=== PATIENT | female | born 1985 | race Hispanic/Latino ===

== ENCOUNTER 2018-03-28 11:54 | Emergency (ER) | payer SELFPAY ==
[2018-03-28] MEDS ORDERED: ATIVAN IM ONE ×2 (12:10→12:12)
[2018-03-28] MEDS ORDERED: HALDOL IM ONE ×2 (12:10→12:11)
--- NOTE | 2018-03-28 12:12 | Emergency Department Report ---
ED General Adult HPI - General Chief complaint: Overdose Stated complaint: UNRESPONSIVE Time Seen by Provider: 03/28/18 12:10 Source: patient, EMS (verbal report received from EMS.ems notes not available at time of chart dictation), RN notes reviewed Mode of arrival: Stretcher Limitations: Altered Mental Status, Other (patient is intoxicated) - History of Present Illness Initial comments: This is a 33-year-old female who is unknown to this provider previously, brought to the hospital by EMS. The patient was found unresponsive in the field , for uncertain duration of time, and uncertain mechanism. EMS did not check a fingerstick in the field. Upon arrival to the ER, the patient's fingerstick was in the mid 90s. EMS gave Narcan in the field with some improvement in mental status. In the ER, the patient came to, and admitted to consuming GHB recreationally. She denied other coingestants. She made no indication of homicidality or suicidality. The patient was very upset, and was very concerned that she was going to be arrested. In addition, drug paraphernalia, including methamphetamine rocks were noted to be in her external genitals. The patient required Haldol and Ativan for her diagnostic workup given her trauma. No family is available at this time for collateral information. No other information is available at this time. -: unknown Quality: other (the patient is altered and intoxicated, and cannot describe quality, consistency, exacerbating or relieving factors.) Consistency: other (per hpi) Improves with: other (per hpi) Worsens with: other (per hpi) Associated Symptoms: other (per hpi) Treatments Prior to Arrival: other (per hpi) - Related Data Previous Rx's Medication Instructions Recorded Last Taken Type Naloxone HCl [Narcan] 2 mg NS Q15MIN PRN #10 spray 03/28/18 Unknown Rx Allergies Allergy/AdvReac Type Severity Reaction Status Date / Time No Known Allergies Allergy Verified 03/28/18 12:04 ED Review of Systems ROS: Stated complaint: UNRESPONSIVE Other details as noted in HPI Comment: Unobtainable due to pts medical conditions ED Past Medical Hx - Past Medical History Additional medical history: unknown - Surgical History Additional Surgical History: unknown - Social History Smoking Status: Unknown if ever smoked - Medications Home Medications: Home Medications Medication Instructions Recorded Confirmed Last Taken Type Naloxone HCl [Narcan] 2 mg NS Q15MIN PRN #10 spray 03/28/18 Unknown Rx ED Physical Exam - General Limitations: Altered Mental Status General appearance: appears intoxicated, in distress - Head Head exam: Present: atraumatic, normocephalic - Eye Eye exam: Present: normal appearance, other (the pupils are pinpoint and has minima reaction to light after Haldol, Ativanl). Absent: nystagmus - ENT ENT exam: Present: normal exam, normal orophraynx, mucous membranes moist, TM's normal bilaterally, normal external ear exam, other (there is no hemotympanum. There is no nasal septal hematoma) - Neck Neck exam: Present: normal inspection, full ROM. Absent: tenderness, meningismus - Respiratory Respiratory exam: Present: normal lung sounds bilaterally. Absent: respiratory distress - Cardiovascular Cardiovascular Exam: Present: regular rate, normal rhythm, normal heart sounds. Absent: bradycardia, tachycardia, irregular rhythm, systolic murmur, diastolic murmur, rubs, gallop - GI/Abdominal GI/Abdominal exam: Present: soft, normal bowel sounds. Absent: distended, tenderness, guarding, rebound, rigid, pulsatile mass - Rectal Rectal exam: Present: normal inspection, other (escorted by nurse delisa elise ) - External exam: Present: normal external exam (escorted by nurse delisa elise) - Extremities Exam Extremities exam: Present: normal inspection, full ROM, normal capillary refill , other (2+ pulses noted in the bilateral upper, lower extremities. Compartments soft. The pelvis is stable. There is no long bony tenderness.). Absent: pedal edema, calf tenderness - Back Exam Back exam: Present: normal inspection, full ROM. Absent: paraspinal tenderness , vertebral tenderness - Neurological Exam Neurological exam: Present: altered (patient is alert to name, location. Does not know the date, year, month), CN II-XII intact, other (there is no facial droop. The tongue is midline. Extraocular movements are intact. Patient is phonating in full sentences. She moves 5 extremities spontaneously. Intoxicated, cannot assess slight sensation or light touch or pinprick.) - Psychiatric Psychiatric exam: Present: anxious - Skin Skin exam: Present: warm, dry, intact, normal color. Absent: rash ED Course Vital Signs 03/28/18 03/28/18 03/28/18 12:04 12:38 12:46 Temperature 96.5 F L Pulse Rate 61 Respiratory 14 Rate Blood Pressure 115/75 115/75 107/65 O2 Sat by Pulse 95 100 99 Oximetry 03/28/18 03/28/18 03/28/18 13:00 13:16 13:30 Temperature Pulse Rate 70 72 73 Respiratory 14 14 13 Rate Blood Pressure 118/80 118/80 O2 Sat by Pulse 100 100 100 Oximetry 03/28/18 03/28/18 03/28/18 13:46 14:00 14:16 Temperature Pulse Rate 77 74 69 Respiratory 13 12 13 Rate Blood Pressure 109/67 109/67 120/73 O2 Sat by Pulse 100 100 100 Oximetry 03/28/18 03/28/18 03/28/18 14:30 14:46 15:00 Temperature Pulse Rate 67 62 61 Respiratory 13 12 11 L Rate Blood Pressure 120/73 113/74 113/74 O2 Sat by Pulse 100 99 Oximetry 03/28/18 03/28/18 03/28/18 15:16 15:30 15:46 Temperature Pulse Rate 91 H 71 91 H Respiratory 15 12 12 Rate Blood Pressure 128/73 128/73 127/73 O2 Sat by Pulse 100 98 100 Oximetry 03/28/18 03/28/18 03/28/18 16:00 16:16 16:30 Temperature Pulse Rate 68 64 94 H Respiratory 12 13 16 Rate Blood Pressure 127/73 127/73 127/70 O2 Sat by Pulse 100 100 100 Oximetry 03/28/18 03/28/18 16:46 17:00 Temperature Pulse Rate 72 71 Respiratory 17 13 Rate Blood Pressure 116/74 116/74 O2 Sat by Pulse 99 99 Oximetry - Reevaluation(s) Reevaluation #1: 03/28/18 15:51 The patient is reassessed and she is much more awake, alert, and conversant. She is clinically sober at this time, has a [place] Coma Scale of 15. She is not homicidal or suicidal. I counseled the patient to avoid consumption of recreational drugs. She is able to tell me the year, month, date, and also giving her mother's first and last name. We are going to call the patient's mother to come by and pick her up. Reevaluation #2: 03/28/18 17:13 Since family will not come to pickle processor the patient. She is still impaired, and will therefore be observed in the ER until clinical sobriety. Reevaluation #3: 03/28/18 19:51 Patient was further observed in the ER, able to walk without difficulty, clinically sober, and exhibited decision-making capacity at the time of discharge. She was also seen in consultation with the mental health team who give the patient outpatient resources for detox therapy. ED Medical Decision Making - Lab Data Result diagrams: 03/28/18 Unknown 03/28/18 Unknown - EKG Data -: EKG Interpreted by Me EKG shows normal: sinus rhythm, axis, intervals, QRS complexes, ST-T waves - EKG Data When compared to previous EKG there are: previous EKG unavailable - Radiology Data Radiology results: report reviewed, image reviewed Noncontrast CT scan of the brain is negative for acute disease noncontrast CT scan of the cervical spine is negative for acute disease. 1 view x-ray of the chest is negative for acute disease - Medical Decision Making Differential diagnosis, including but not limited to: Intracranial injury, cervical spine injury, concussion, polysubstance abuse, intoxication, myositis, anxiety, mood disorder Assessment and plan: 33-year-old female who presented initially with altered mental status, found down, called as a code trauma initially. During her primary survey, the patient became awake and alert, speaking in full sentences, was protecting her airway, moving 4 extremities. She did not require intubation. She was very anxious, clearly intoxicated, and did not exhibit decision-making capacity., Most likely secondary to her presumed illicit drug consumption. An emergency CT scan of the brain and cervical spine was negative for acute disease, and serum toxicology studies did not demonstrate evidence of any toxic metabolite. Patient required Haldol and Ativan given her agitation, and inability to cooperate and inability to follow instructions. However, she did not endorse suicidality or homicidality, and it was no indication of intention to self harm, the presentation is most likely the consequence of recreational drug consumption. The patient will be observed in the ER on a cardiac catheterization technician and pulse oximetry pending clinical sobriety. Critical care attestation.: If time is entered above; I have spent that time in minutes in the direct care of this critically ill patient, excluding procedure time. ED Disposition Clinical Impression: Overdose Qualifiers: Encounter type: initial encounter Injury intent: accidental or unintentional Qualified Code(s): T50.901A - Poisoning by unspecified drugs, medicaments and biological substances, accidental (unintentional), initial encounter Disposition: DC-01 TO HOME OR SELFCARE Is pt being admited?: No Does the pt Need Aspirin: No Condition: Stable Instructions: Polysubstance Abuse (ED) Additional Instructions: Please avoid consumption of recreational drugs in the future. These substances are dangerous for the patient. Follow up with her primary care doctor within the next 4-6 weeks. Return to the ER right away with new pain, worsened pain, migration of pain, fevers, chills, lethargy, irritability, projectile vomiting, change in mental status, confusion, homicidality, suicidality. Prescriptions: Naloxone HCl [Narcan] 2 mg NS Q15MIN PRN #10 spray PRN Reason: Overdose Referrals: PRIMARY CAREMD [Primary Care Provider] - 3-5 Days GENE GRECO JR, MD [Staff Physician] - 3-5 Days [facility] [Provider Group] - 3-5 Days
[2018-03-28] MEDS ORDERED: ZEMURON IV ONE (12:15)
[2018-03-28] MEDS ORDERED: XYLOCAINE CARDIAC IV ONE (12:15)
--- NOTE | 2018-03-28 12:25 | XRay Report ---
AP CHEST: HISTORY: Altered mental status AP view of the chest demonstrates a normal mediastinal and cardiac contour with clear lungs and normal bony and soft tissue structures. IMPRESSION: Unremarkable AP chest.
[2018-03-28 12:31] LABS: Hematocrit 42.2 % (30.3-42.9); Mean Corpuscular HGB Conc 33 % (30-34); Mean Corpuscular Hemoglobin 29 pg (28-32); Mean Corpuscular Volume 89 fl (79-97); Platelet Count 313 K/mm3 (140-440); Red Blood Count 4.77 M/mm3 (3.65-5.03); Red Cell Distribution Width 13.7 % (13.2-15.2)
[2018-03-28 12:41] LABS: Alanine Aminotransferase 15 units/L (7-56); Albumin 4.3 g/dL (3.9-5); BUN/Creatinine Ratio 14; Blood Urea Nitrogen 10 mg/dL (7-17); Hemolysis Index 34; INR 0.91 (0.87-1.13)
[2018-03-28 12:42] LABS: Partial Thromboplastin Time 31.2 Sec. (24.2-36.6)
--- NOTE | 2018-03-28 13:09 | Cat Scan Report ---
CT HEAD WITHOUT CONTRAST: HISTORY: Altered mental status. TECHNIQUE: Sequential 2.5mm CT images. COMPARISON: none. FINDINGS: Cerebral Parenchyma: Within normal limits. Cerebellum: Within normal limits. Brainstem: Within normal limits. Ventricles: Normal. Sella: Normal. Extra-axial spaces: Normal. Basal Cisterns: Normal. Intracranial Hemorrhage: None. Midline Shift: None. Calvarium: Normal. Sinuses: Normal. Mastoid Air Cells: Normal. Visualized Orbits: Normal. IMPRESSION: Cranial CT scan within normal limits.
--- NOTE | 2018-03-28 13:10 | Cat Scan Report ---
CT SCAN OF THE CERVICAL SPINE: HISTORY: Altered mental status. TECHNIQUE: Contiguous 1.25 mm axial images of the cervical spine were obtained. Sagittal and coronal reformatted images. FINDINGS: There is normal alignment of the cervical spine. The body, pedicles and posterior ligaments appear normal. No evidence of fracture or subluxation is seen. The spinal canal appears normal. The prevertebral soft tissues appear normal. IMPRESSION: Unremarkable CT of the cervical spine. No acute process is noted.
[2018-03-28 13:29] LABS: Bilirubin,Urine NEG (Negative); Blood,Urine NEG (Negative); Color,Urine Yellow (Yellow); Hyaline Casts,Urine 3 /LPF; Mucus,Urine FEW /HPF
[2018-03-28 15:49] LABS: Benzodiazepines Screen,Urine PRESUMPTIVE NEGATIVE; Methadone Screen,Urine PRESUMPTIVE NEGATIVE; Opiate Screen,Urine PRESUMPTIVE NEGATIVE
[2018-03-28 16:06] LABS: Amphetamine Screen,Urine PRESUMPTIVE POSITIVE; Cannabinoid Screen,Urine PRESUMPTIVE POSITIVE; Cocaine Screen,Urine PRESUMPTIVE POSITIVE
[2018-03-28 17:38] VITALS: BP 116/74
== END 2018-03-28 17:55 | disposition home or self-care (01) ==
LOC: ED 11:54
DX: T41.291A Poisoning by other general anesthetics, accidental (unintentional), initial encounter (principal); T43.621A Poisoning by amphetamines, accidental (unintentional), initial encounter; Y92.89 Other specified places as the place of occurrence of the external cause
CPT/HCPCS: 36415; 70450; 71045; 72125; 80053; 80307; 81001; 82140; 82550; 82962; 83735; 84443; 84702; 85027; 85610; 85730; 87086; 93005; 93010; 96372; 99285; G0480; J1630; J2001; J2060; 80320